=== PATIENT | female | born 1985 | race American Indian/Alaskan Native ===

== ENCOUNTER 2016-09-01 09:27 | Day surgery (SDC) | payer MEDICARE ==
[2016-09-01 10:06] VITALS: BP 112/78
== END 2016-09-01 11:20 | disposition home or self-care (01) ==
LOC: OPU 09:27 → EDSTATUS 09:30 → OPU 11:20
PROVIDERS: ATTEND Psychiatry & Neurology Neurology
DX: G35 Multiple sclerosis (principal)
CPT/HCPCS: 96365; J2930; J7050

== ENCOUNTER 2016-09-02 09:19 | Day surgery (SDC) | payer MEDICARE ==
[2016-09-02 10:09] VITALS: BP 113/81
== END 2016-09-02 11:40 | disposition home or self-care (01) ==
LOC: OPU 09:19 → EDSTATUS 09:30 → OPU 11:40
PROVIDERS: ATTEND Psychiatry & Neurology Neurology
DX: G35 Multiple sclerosis (principal)
CPT/HCPCS: 96365; J2930; J7050

== ENCOUNTER 2016-09-03 09:07 | Day surgery (SDC) | payer MEDICARE ==
[2016-09-03 09:28] VITALS: BP 121/77
== END 2016-09-03 11:20 | disposition home or self-care (01) ==
LOC: OPU 09:07 → EDSTATUS 09:30 → OPU 11:20
PROVIDERS: ATTEND Psychiatry & Neurology Neurology
DX: G35 Multiple sclerosis (principal)
CPT/HCPCS: 96365; J2930; J7050

== ENCOUNTER 2016-09-23 09:13 | Day surgery (SDC) | payer MEDICARE ==
[2016-09-23 09:54] VITALS: BP 107/73
== END 2016-09-23 11:46 | disposition home or self-care (01) ==
LOC: OPU 09:13
PROVIDERS: ATTEND Psychiatry & Neurology Neurology
DX: G35 Multiple sclerosis (principal)
CPT/HCPCS: 96365; J2930; J7050

== ENCOUNTER 2016-09-24 09:27 | Day surgery (SDC) | payer MEDICARE ==
[2016-09-24 10:17] VITALS: BP 112/75
== END 2016-09-24 11:07 | disposition home or self-care (01) ==
LOC: OPU 09:27
PROVIDERS: ATTEND Psychiatry & Neurology Neurology
DX: G35 Multiple sclerosis (principal)
CPT/HCPCS: 96365; J2930; J7050

== ENCOUNTER 2016-09-25 10:28 | Day surgery (SDC) | payer MEDICARE ==
[2016-09-25 11:08] VITALS: BP 128/82
== END 2016-09-25 13:10 | disposition home or self-care (01) ==
LOC: OPU 10:28
PROVIDERS: ATTEND Psychiatry & Neurology Neurology
DX: G35 Multiple sclerosis (principal)
CPT/HCPCS: 96365; J2930; J7050

== ENCOUNTER 2016-11-10 09:13 | Day surgery (SDC) | payer MEDICARE ==
[2016-11-10 10:11] VITALS: BP 107/73
== END 2016-11-10 11:40 | disposition home or self-care (01) ==
LOC: OPU 09:13
PROVIDERS: ATTEND Psychiatry & Neurology Neurology
DX: G35 Multiple sclerosis (principal)
CPT/HCPCS: 96365; J2930; J7050

== ENCOUNTER 2016-11-11 11:50 | Day surgery (SDC) | payer MEDICARE ==
[2016-11-11 14:35] VITALS: BP 118/68
== END 2016-11-11 14:00 | disposition home or self-care (01) ==
LOC: OPU 11:50
PROVIDERS: ATTEND Psychiatry & Neurology Neurology
DX: G35 Multiple sclerosis (principal)
CPT/HCPCS: 96365; J2930; J7050

== ENCOUNTER 2016-11-12 09:11 | Day surgery (SDC) | payer MEDICARE ==
[2016-11-12 09:41] VITALS: BP 116/63
== END 2016-11-12 11:40 | disposition home or self-care (01) ==
LOC: OPU 09:11
PROVIDERS: ATTEND Psychiatry & Neurology Neurology
DX: G35 Multiple sclerosis (principal)
CPT/HCPCS: 96365; J2930; J7050